=== PATIENT | female | born 1990 | race Caucasian/White ===

== ENCOUNTER 2018-06-26 13:05 | Outpatient (CLI) | payer OTHER ==
--- NOTE | 2018-06-26 14:56 | RAD ---
LUMBAR SPINE TWO VIEWS: 06/26/18 HISTORY: Back pain x1 month. COMPARISON: None. FINDINGS: There are five lumbar type vertebral bodies. Vertebral body height is maintained. Disc space heights are preserved. No spondylolisthesis or spondylolysis. IMPRESSION: Unremarkable two views lumbar spine. POS: [facility]
== END 2018-06-26 13:06 | disposition home or self-care (01) ==
LOC: SCSRAD 13:05
PROVIDERS: ATTEND Chiropractor
DX: M54.16 Radiculopathy, lumbar region (principal)
CPT/HCPCS: 72100